=== PATIENT | male | born 2000 | race Caucasian/White ===

== ENCOUNTER 2023-07-12 22:23 | Emergency (ER) | payer OTHER ==
[~2023-07-12] VITALS: Ht 182.9 cm; Wt 64.2 kg
[2023-07-12 22:32] VITALS: BP 131/93; PULSE 61; RESP 18; TEMP 98.2; O2SAT 98
[2023-07-13] MEDS ORDERED: sulfamethoxazole/trimethoprim DS (800/160mg) tablet PO ONE (01:35)
[2023-07-13] MEDS ORDERED: SULF1TAB49 PO (01:37)
== END 2023-07-13 01:46 | disposition home or self-care (01) ==
LOC: ER 22:25
DX: S30.860A Insect bite (nonvenomous) of lower back and pelvis, initial encounter (principal); W57.XXXA Bitten or stung by nonvenomous insect and other nonvenomous arthropods, initial encounter; Y93.89 Activity, other specified; Y92.89 Other specified places as the place of occurrence of the external cause; Y99.8 Other external cause status
CPT/HCPCS: 99283; A6449

== ENCOUNTER 2024-02-14 08:38 | Outpatient (CLI) | payer OTHER | END 2024-02-14 23:59 | disposition home or self-care (01) | LOC: RAD 08:38 | PROVIDERS: ATTEND Family Medicine Sports Medicine | DX: S62.001K Unspecified fracture of navicular [scaphoid] bone of right wrist, subsequent encounter for fracture with nonunion (principal); M25.531 Pain in right wrist; X58.XXXD Exposure to other specified factors, subsequent encounter | CPT/HCPCS: 73200 ==